=== PATIENT | male | born 1970 | race Caucasian/White ===

== ENCOUNTER 2017-02-18 13:07 | Emergency (ER) | payer MEDICAID ==
[~2017-02-18] VITALS: Ht 162.6 cm; Wt 90.7 kg
[2017-02-18 14:22] LABS: Basophils # (auto) 0 uL; Basophils % (auto) 0.6 % (0.0-2.0); Eosinophils # (auto) 0.2 uL; Hematocrit 42.8 % (41.0-53.0); Hemoglobin 14.5 g/dL (13.5-17.5); Lymphocytes # (auto) 0.9 uL; Lymphocytes % (auto) 10.7 % (10.0-50.0); Mean Corpuscular Hemoglobin 31.4 pg (28.0-32.0); Mean Corpuscular Volume 92.3 fL (80.0-100.0); Monocytes # (auto) 0.5 uL; Monocytes % (auto) 6.2 % (0.0-12.0); Neutrophils # (auto) 6.7 uL; Neutrophils % (auto) 80.5 % (37.0-80.0); Platelet Count (auto) 183 10^3/uL (140-450); Red Blood Cells 4.64 10^6/uL (4.5-5.90); Red Cell Distribution Width 12.4 % (11.8-14.3); White Blood Cell 8.4 10^3/uL (4.4-10.8)
[2017-02-18 14:43] LABS: Albumin 4.5 g/dL (3.4-5.0); BUN/Creatinine Ratio 12.8; Bilirubin, Total 0.4 mg/dL (0.2-1.0); Calcium 9.2 mg/dL (8.5-10.1); Potassium 3.6 mmol/L (3.5-5.1); Total Protein 8.2 g/dL (6.4-8.2)
[2017-02-18] MEDS ORDERED: SODIUM CHLORIDE 0.9% 1,000 ML IV ONE (15:48)
[2017-02-18] MEDS ORDERED: METOCLOPRAMIDE HCL 5MG/ml INJ 2ml VIAL IV ONE (16:00)
[2017-02-18] MEDS ORDERED: KETOROLAC TROMETH 30 MG/ML 1ML VIAL IV ONE (16:00)
[2017-02-18 16:06] VITALS: BP 153/98
== END 2017-02-18 16:27 | disposition left against medical advice (07) ==
LOC: ER 13:17
DX: S33.5XXA Sprain of ligaments of lumbar spine, initial encounter (principal); M62.830 Muscle spasm of back; R51 Headache; I10 Essential (primary) hypertension; F17.210 Nicotine dependence, cigarettes, uncomplicated; Z87.442 Personal history of urinary calculi; X58.XXXA Exposure to other specified factors, initial encounter; Y93.89 Activity, other specified; Y92.89 Other specified places as the place of occurrence of the external cause; Y99.8 Other external cause status
CPT/HCPCS: 36415; 74176; 80053; 85025; 96374; 96375; 99285; J1885; J2765; J7030

== ENCOUNTER 2018-03-22 08:55 | Emergency (ER) | payer SELFPAY ==
[~2018-03-22] VITALS: Ht 162.6 cm; Wt 90.7 kg
[2018-03-22] MEDS ORDERED: PROMETHAZINE HCL 25 MG/ML 1ML IM ONE (09:30)
[2018-03-22] MEDS ORDERED: MORPHINE SULFATE 10 MG/ML INJ 1ML SDV IM ONE (09:30)
[2018-03-22 10:04] VITALS: BP 140/91
== END 2018-03-22 10:14 | disposition home or self-care (01) ==
LOC: ER 08:55
DX: G89.29 Other chronic pain (principal); M54.41 Lumbago with sciatica, right side; Z76.0 Encounter for issue of repeat prescription; F17.210 Nicotine dependence, cigarettes, uncomplicated; I10 Essential (primary) hypertension; Z87.442 Personal history of urinary calculi
CPT/HCPCS: 96372; 99283; J2270; J2550

== ENCOUNTER 2018-03-22 15:23 | Emergency (ER) | payer MEDICAID ==
[~2018-03-22] VITALS: Ht 162.6 cm; Wt 90.7 kg
[2018-03-22 15:35] VITALS: BP 164/90
[2018-03-22] MEDS ORDERED: amLODIPine BESYLATE 5 MG TAB PO ONE (17:00)
[2018-03-22] MEDS ORDERED: HYDROcodone-ACET 10/325MG TAB PO ONE (17:00)
== END 2018-03-22 17:23 | disposition home or self-care (01) ==
LOC: ER 15:28
DX: M54.41 Lumbago with sciatica, right side (principal); I10 Essential (primary) hypertension; F17.210 Nicotine dependence, cigarettes, uncomplicated

== ENCOUNTER 2018-09-05 23:34 | Emergency (ER) | payer SELFPAY ==
[~2018-09-05] VITALS: Ht 162.6 cm; Wt 90.7 kg
[~2018-09-05 23:34] MED LIST: AML5T PO; CARI-277 PO; HYDR-531 PO
[2018-09-06 01:35] LABS: Urine WBC None Seen /hpf (0 - 3)
[2018-09-06 02:04] LABS: Urine Bacteria NONE SEEN /hpf (None Seen); Urine Blood Negative /uL (Negative); Urine Specific Gravity 1.014 (1.001-1.035)
[2018-09-06] MEDS ORDERED: MORPHINE SULFATE 10 MG/ML INJ 1ML SDV IV ONE ×2 (04:00→06:00)
[2018-09-06] MEDS ORDERED: ONDANSETRON HCL 4 MG/2 ML VIAL IV ONE (04:00)
[2018-09-06 06:00] VITALS: BP 141/91
== END 2018-09-06 06:35 | disposition home or self-care (01) ==
LOC: ER 23:36
DX: S33.5XXA Sprain of ligaments of lumbar spine, initial encounter (principal); I10 Essential (primary) hypertension; F17.210 Nicotine dependence, cigarettes, uncomplicated; Z88.8 Allergy status to other drugs, medicaments and biological substances; Z88.6 Allergy status to analgesic agent; W06.XXXA Fall from bed, initial encounter; Y93.89 Activity, other specified; Y99.8 Other external cause status; Y92.89 Other specified places as the place of occurrence of the external cause
CPT/HCPCS: 73030; 74176; 81001; 94761; 96374; 96375; 96376; 99284; J2270; J2405